=== PATIENT | female | born 1990 | race Caucasian/White ===

== ENCOUNTER 2017-06-04 02:25 | Emergency (ER) | payer MEDICAID ==
[2017-06-04 03:14] LABS: Basophils % (Auto) 0.7 % (0.0-1.8); Eosinophils % (Auto) 1.5 % (0.0-4.3); Hematocrit 35.1 % (30.3-42.9); Hemoglobin 11.6 gm/dl (10.1-14.3); Mean Corpuscular HGB Conc 33 % (30-34); Mean Corpuscular Volume 75 fl (79-97); Platelet Count 231 K/mm3 (140-440); Red Blood Count 4.67 M/mm3 (3.65-5.03); Red Cell Distribution Width 14.6 % (13.2-15.2)
[2017-06-04 03:26] LABS: Anion Gap 16 mmol/L; BUN/Creatinine Ratio 17; Blood Urea Nitrogen 12 mg/dL (7-17); Calcium 9.3 mg/dL (8.4-10.2); Carbon Dioxide 27 mmol/L (22-30); Chloride 102.2 mmol/L (98-107); Glucose 89 mg/dL (65-100); Mean Corpuscular Hemoglobin 25 pg (28-32); Potassium 4.2 mmol/L (3.6-5.0); Sodium 141 mmol/L (137-145)
--- NOTE | 2017-06-04 04:13 | Emergency Department Report ---
ED Chest Pain HPI - General Chief Complaint: Chest Pain Stated Complaint: CP Time Seen by Provider: 06/04/17 03:59 Source: patient Mode of arrival: Ambulatory Limitations: No Limitations - History of Present Illness Initial Comments: 27-year-old female presents to the emergency department from home with a complaint of a three-day history of some intermittent sharp chest pains with some radiation towards the back. When this occurs she sometimes feels like she has shortness of breath. She denies any nausea, vomiting, fever or diaphoresis. She has a past medical history of preeclampsia and some hypertension during her . She also has a history of hypothyroidism for which she takes Synthroid. She is not currently have a primary care physician. She has not taken anything for her symptoms prior to presentation but she did take a baby aspirin this morning. - Related Data Home Medications Medication Instructions Recorded Confirmed Last Taken Levothyroxine [Synthroid] 50 mcg PO QAM 05/19/15 06/04/17 06/03/17 Allergies Allergy/AdvReac Type Severity Reaction Status Date / Time No Known Allergies Allergy Unverified 05/19/15 15:23 Heart Score - HEART Score History: Slightly suspicious EKG: Normal Age: < 45 Risk factors: 1-2 risk factors Troponin: < normal limit HEART Score: 1 - Critical Actions Critical Actions: 0-3 pts:0.9-1.7%risk of adverse cardiac event.Candidate for discharge ED Review of Systems ROS: Stated complaint: CP Other details as noted in HPI Comment: All other systems reviewed and negative Constitutional: denies: chills, fever Eyes: denies: eye pain, eye discharge, vision change ENT: denies: ear pain, throat pain Respiratory: shortness of breath. denies: cough Cardiovascular: chest pain. denies: palpitations Gastrointestinal: denies: abdominal pain, nausea, diarrhea Genitourinary: denies: urgency, dysuria, discharge Musculoskeletal: back pain. denies: arthralgia Skin: denies: rash, lesions Neurological: denies: headache, weakness, paresthesias ED Past Medical Hx - Past Medical History Additional medical history: HYPOTHYROIDISM, PRE ECLAMPSIA - Surgical History Additional Surgical History: D&C, C-SECTIONS X2. UTERINE POLYP REMOVAL. UTERINE CYST REMOVAL - Social History Smoking Status: Never Smoker Substance Use Type: None - Medications Home Medications: Home Medications Medication Instructions Recorded Confirmed Last Taken Type Levothyroxine [Synthroid] 50 mcg PO QAM 05/19/15 06/04/17 06/03/17 History ED Physical Exam - General Limitations: No Limitations - Other Other exam information: GENERAL: The patient is well-developed well-nourished. HENT: Normocephalic. Atraumatic. Patient has moist mucous membranes. EYES: Extraocular motions are intact. Pupils equal reactive to light bilaterally. NECK: Supple. Trachea is midline. CHEST/LUNGS: Clear to auscultation. There is no respiratory distress noted. HEART/CARDIOVASCULAR: Regular. There is no tachycardia. There is no murmur. ABDOMEN: Abdomen is soft, nontender. Patient has normal bowel sounds. There is no abdominal distention. SKIN: Skin is warm and dry. NEURO: The patient is awake, alert, and oriented. The patient is cooperative. The patient has no focal neurologic deficits. The patient has normal speech. MUSCULOSKELETAL: There is no tenderness or deformity. There is no limitation range of motion. There is no evidence of acute injury. ED Course Vital Signs 06/04/17 06/04/17 06/04/17 02:51 03:56 04:00 Temperature 98.6 F Pulse Rate 79 81 Respiratory 18 16 Rate Blood Pressure 148/89 146/87 156/97 O2 Sat by Pulse 100 100 Oximetry 06/04/17 06/04/17 06/04/17 04:08 04:15 04:31 Temperature Pulse Rate 70 79 Respiratory 18 21 19 Rate Blood Pressure 156/97 131/89 O2 Sat by Pulse 99 100 100 Oximetry 06/04/17 06/04/17 06/04/17 04:45 05:01 05:15 Temperature Pulse Rate 77 78 71 Respiratory 18 17 21 Rate Blood Pressure 131/89 165/107 165/107 O2 Sat by Pulse 100 100 100 Oximetry 06/04/17 06/04/17 06/04/17 05:30 05:45 06:00 Temperature Pulse Rate 70 78 78 Respiratory 18 16 19 Rate Blood Pressure 163/94 163/94 148/93 O2 Sat by Pulse 100 100 100 Oximetry 06/04/17 06:15 Temperature Pulse Rate 85 Respiratory 11 L Rate Blood Pressure 148/93 O2 Sat by Pulse 100 Oximetry JOSE score - Jose Score Age > 65: (0) No Aspirin use within the Past 7 Days: (0) No 3 or more CAD Risk Factors: (0) No 2 or more Angina events in past 24 hrs: (0) No Known CAD with more than 50% Stenosis: (0) No Elevated Cardiac Markers: (0) No ST Deviation Greater than 0.5mm: (0) No JOSE Score: 0 ED Medical Decision Making - Lab Data Result diagrams: 06/04/17 02:58 06/04/17 02:58 - EKG Data -: EKG Interpreted by Me EKG shows normal: sinus rhythm, axis, intervals, QRS complexes, ST-T waves Rate: normal - EKG Data When compared to previous EKG there are: previous EKG unavailable Interpretation: normal EKG - Radiology Data Radiology results: image reviewed interpreted by me: Chest x-ray does not show any acute process. There are no pleural effusions, obvious pneumonia and there is no pneumothorax. - Medical Decision Making 27-year-old presents with some chest pain and occasional shortness of breath. Negative troponins 2 and a negative d-dimer. EKG does not show any signs of ST elevation CO, ischemia or dysrhythmia. She has a history of hypothyroidism and may not be completely controlled with her Synthroid. Vital signs otherwise stable including being afebrile. Patient is feeling improved. Reevaluated multiple times for multiple hours and she has been stable throughout her ED course. Discharge home with referrals for primary care and cardiology. She will return to the ER with any worsening of her symptoms or any acute distress. - Differential Diagnosis CO, PE, costochondritis, GERD Critical Care Time: No Critical care attestation.: If time is entered above; I have spent that time in minutes in the direct care of this critically ill patient, excluding procedure time. ED Disposition Clinical Impression: Chest pain Qualifiers: Chest pain type: unspecified Qualified Code(s): R07.9 - Chest pain, unspecified Hypertension Qualifiers: Hypertension type: essential hypertension Qualified Code(s): I10 - Essential ( primary) hypertension Disposition: TO HOME OR SELFCARE Is pt being admited?: No Condition: Stable Instructions: Chest Pain (ED), Hypertension (ED) Additional Instructions: Please follow up with a primary care physician in the next few days. I have given him a referral for a local race and sports book writer, Dr. Roland, to follow up regarding your intermittent chest pain. Return to the emergency Department with any worsening of your symptoms or any acute distress. Try and stay away from foods that are high in salt and caffeinated products to help with your blood pressure. Keep a blood pressure log. Referrals: IRENE ECHEVARRIA MD [Staff Physician] - 3-5 Days YEISON ROLAND MD [Staff Physician] - 3-5 Days [facility] [Outside] - 3-5 Days Time of Disposition: 05:57
--- NOTE | 2017-06-04 04:43 | XRay Report ---
FINAL REPORT EXAM: XR CXR CLINICAL INDICATIONS: CP FINDINGS: Frontal and lateral views the chest were acquired. The heart is normal in size. The lungs appear clear. The pleura and mediastinum are within normal limits. IMPRESSION: NO ACTIVE DISEASE IN THE CHEST
[2017-06-04 06:25] VITALS: BP 148/93
== END 2017-06-04 06:32 | disposition home or self-care (01) ==
LOC: ED 02:25
DX: I10 Essential (primary) hypertension (principal); R07.9 Chest pain, unspecified; E03.9 Hypothyroidism, unspecified
CPT/HCPCS: 36415; 71020; 80048; 84443; 84484; 84703; 85025; 85379; 93005; 93010

== ENCOUNTER 2017-10-12 23:38 | Emergency (ER) | payer MEDICAID ==
[2017-10-12 23:59] VITALS: BP 122/80
[2017-10-13 00:41] LABS: Bilirubin,Urine NEG (Negative); Blood,Urine LG (Negative); Color,Urine Yellow (Yellow); Protein,Urine <15 mg/dL mg/dL (Negative); Urobilinogen,Urine < 2.0 mg/dL (<2.0)
[2017-10-13 00:49] LABS: HCG Qualitative,Urine Negative (Negative)
[2017-10-13] MEDS ORDERED: MOTRIN ONE (00:58)
[2017-10-13] MEDS ORDERED: MOTRIN PO ONE (01:02)
--- NOTE | 2017-10-13 02:37 | Emergency Department Report ---
HPI - General Chief Complaint: Back Pain/Injury Time Seen by Provider: 10/13/17 02:32 - HPI HPI: 27-year-old [place] female comes in complaining of back pain 1 week. Patient reports that the back pain is mid back worse in the morning when she tries to void. She denies any dysuria. She denies any nausea no vomiting no fever no chills and no trauma. Does have a past medical history of hypothyroidism. She currently takes levothyroxine. She reports that she took Tylenol but did not help. She reports that she was given Motrin while here and reports to get help. Patient reports that she has had T kids in 2016 at 2017 with preeclampsia. ED Past Medical Hx - Past Medical History Previous Medical History?: Yes Additional medical history: HYPOTHYROIDISM, PRE ECLAMPSIA - Surgical History Past Surgical History?: Yes Additional Surgical History: D&C, C-SECTIONS X2. UTERINE POLYP REMOVAL. UTERINE CYST REMOVAL - Social History Smoking Status: Never Smoker Substance Use Type: None - Medications Home Medications: Home Medications Medication Instructions Recorded Confirmed Last Taken Type Levothyroxine [Synthroid] 50 mcg PO QAM 05/19/15 06/04/17 06/03/17 History Nitrofurantoin Monohyd/M-Cryst 100 mg PO BID #14 capsule 10/13/17 Unknown Rx [Macrobid 100 mg Capsule] ED Review of Systems ROS: Stated complaint: BACK PAIN Other details as noted in HPI Physical Exam - Physical Exam Vital Signs: Vital Signs 10/12/17 23:55 Temperature 97.8 F Pulse Rate 76 Respiratory 17 Rate Blood Pressure 122/80 O2 Sat by Pulse 100 Oximetry Physical Exam: GENERAL: Alert and oriented x3, no apparent distress, Normal Gait, atraumatic. HEAD: Head is normocephalic and a-traumatic. EYES: Extra ocular muscles are intact. Pupils are equal, round, and reactive to light and accommodation. MOUTH:Mouth is well hydrated and without lesions. Tonsils nonerythematous or swollen, Uvula midline, Tongue not elevated. Mucous membranes are moist. Posterior pharynx clear, no exudate or lesions. Patent airways. NECK: Supple. Non edematous, No carotid bruits. No lymphadenopathy or thyromegaly. LUNGS: Symetrical with respiration, No wheezing, no rales or crackles, CTAB. HEART: S1, S2 present, regular rate and rhythm without murmur, no rubs, no gallops. ABDOMEN: No organomegaly was noted,Positive bowel sounds, soft, and non- distended. . Nontender to palpation on all Quadrants, NO CVA tenderness. EXTREMITIES/MUSCULOSKELETAL: No cyanosis, clubbing, rash, lesions or edema. Full ROM bilaterally. UE/LE Pulses 2+ bilaterally. LE and UE 5+ strength bilaterally Back: Normal inspection mild CVA tenderness on the right. No paraspinal tenderness or vertebral tenderness. Full range of motion. NEUROLOGIC: No focal Deficit, Cranial nerves II through XII are grossly intact. No loss of sensation, No facial droop, PSYCHIATRIC: Mood is congruent with affect, SKIN: Warm and dry, No lesions, No ulceration or induration present ED Course Vital Signs 10/12/17 23:55 Temperature 97.8 F Pulse Rate 76 Respiratory 17 Rate Blood Pressure 122/80 O2 Sat by Pulse 100 Oximetry ED Medical Decision Making - Medical Decision Making Patient's been evaluated with this provider fast track. Urinalysis was completed which shows the patient has a trace of leukocytes. Negative . Discussed the patient will treat her for urinary tract infection and discussed with her to follow-up with outside Medical Center if symptoms persist or gets worse. Patient verbalized understanding. Critical care attestation.: If time is entered above; I have spent that time in minutes in the direct care of this critically ill patient, excluding procedure time. ED Disposition Clinical Impression: UTI (urinary tract infection) Qualifiers: Urinary tract infection type: acute cystitis Hematuria presence: without hematuria Qualified Code(s): N30.00 - Acute cystitis without hematuria Disposition: TO HOME OR SELFCARE Is pt being admited?: No Does the pt Need Aspirin: No Condition: Stable Instructions: Urinary Tract Infection in Women (ED) Additional Instructions: Please complete antibiotics as prescribed. You can take Motrin over-the- counter for pain management. Please drink plenty of fluids such as water. Please do not drink sodas increase water intake. Prescriptions: Nitrofurantoin Monohyd/M-Cryst [Macrobid 100 mg Capsule] 100 mg PO BID #14 capsule Referrals: PRIMARY CARE, [Primary Care Provider] - 3-5 Days [facility] [Provider Group] - 3-5 Days
== END 2017-10-13 02:40 | disposition home or self-care (01) ==
LOC: ED 23:38
DX: N30.00 Acute cystitis without hematuria (principal); E03.9 Hypothyroidism, unspecified
CPT/HCPCS: 81001; 81025; 87086; 99283

== ENCOUNTER 2018-03-15 16:28 | Emergency (ER) | payer MEDICAID, OTHER ==
[2018-03-15 17:54] VITALS: BP 151/96
--- NOTE | 2018-03-15 21:03 | Emergency Department Report ---
Minor Respiratory - HPI Chief Complaint: Upper Respiratory Infection Stated Complaint: CONGESTION/THROAT/FEVER/SOAR Duration: 1 Day Pain Location: Nose Severity: moderate Minor Respiratory: Yes Rhinorrhea, Yes Able to Tolerate Fluids, Yes Cough, Yes Sick Contacts (children), Yes Fever, No Sore Throat, No Ear Pain, No Hemoptysis , No Chest Pain, No Shortness of Breath Other History: This is a 28-year-old female presents with fever, congestion, and cough that started yesterday morning. Patient states she took her children to a birthday alliance party on Tuesday. Both children started coughing and fever 3 days ago. She is currently taking cold and flu medication with no improvement of symptoms. She denies recent travel, diarrhea, nausea or vomiting , chest pain, and shortness of breath. ED Review of Systems ROS: Stated complaint: CONGESTION/THROAT/FEVER/SOAR Other details as noted in HPI Constitutional: chills, fever ENT: congestion. denies: ear pain, throat pain Respiratory: cough. denies: shortness of breath, wheezing Cardiovascular: denies: chest pain, palpitations Gastrointestinal: denies: abdominal pain, nausea, diarrhea Musculoskeletal: denies: back pain, joint swelling, arthralgia, myalgia Skin: denies: rash, lesions Neurological: denies: headache, weakness, paresthesias Psychiatric: denies: anxiety, depression ED Past Medical Hx - Past Medical History Previous Medical History?: Yes Additional medical history: HYPOTHYROIDISM, PRE ECLAMPSIA - Surgical History Past Surgical History?: Yes Additional Surgical History: D&C, C-SECTIONS X2. UTERINE POLYP REMOVAL. UTERINE CYST REMOVAL - Social History Smoking Status: Never Smoker Substance Use Type: None - Medications Home Medications: Home Medications Medication Instructions Recorded Confirmed Last Taken Type Levothyroxine [Synthroid] 50 mcg PO QAM 05/19/15 06/04/17 06/03/17 History Nitrofurantoin Monohyd/M-Cryst 100 mg PO BID #14 capsule 10/13/17 Unknown Rx [Macrobid 100 mg Capsule] Amoxicillin/Potassium Clav 1 each PO BID #10 tablet 03/15/18 Unknown Rx [Augmentin 875-125 Tablet] Benzonatate 200 mg PO TID PRN #20 capsule 03/15/18 Unknown Rx Fluticasone [Flonase] 1 spray NS QDAY #1 bottle 09/26/18 Unknown Rx Minor Respiratory Exam - Exam General: Vital signs noted. No distress. Alert and acting appropriately. HEENT: Yes Pharyngeal Erythema (posterior pharynx), Yes Moist Mucous Membranes, Yes Rhinorrhea (turbinate is mildly congested with mucoid discharge), Yes Frontal Tenderness, No Pharyngeal Exudates, No Conjuctival Injection, No Maxillary Tenderness Ear: Neither TM Bulge, Neither TM Erythema, Neither EAC Pain, Neither EAC Discharge Neck: Yes Supple, No Adenopathy Lungs: Yes Good Air Exchange, Yes Cough, No Wheezes, No Ronchi, No Stridor, No Labored Respirations, No Retractions, No Use of Accessory Muscles, No Other Abnormal Lung Sounds Heart: Yes Regular, No Murmur Abdomen: Yes Normal Bowel Sounds, No Tenderness, No Peritoneal Signs Skin: No Rash, No Edema Neurologic: Alert and oriented, no deficits. Musculoskeletal: Unremarkable. ED Course Vital Signs 03/15/18 17:52 Temperature 99.4 F Pulse Rate 114 H Respiratory 18 Rate Blood Pressure 151/96 O2 Sat by Pulse 97 Oximetry Vital Signs 03/15/18 03/15/18 17:52 21:10 Temperature 99.4 F Pulse Rate 114 H 94 H Respiratory 18 17 Rate Blood Pressure 151/96 O2 Sat by Pulse 97 99 Oximetry ED Medical Decision Making - Medical Decision Making Patient is stable and was examined by me. Vitals stable and patient is in no acute distress. Physical assessment susceptible of acute frontal sinusitis. Start Augmentin, Flonase, benzonatate. Continue Tylenol or ibuprofen for fever. Discussed plan with patient and she agreed with plan. Discharged home in stable condition. Follow up with PCP in 2-3 days. Critical care attestation.: If time is entered above; I have spent that time in minutes in the direct care of this critically ill patient, excluding procedure time. ED Disposition Clinical Impression: Sinusitis Qualifiers: Sinusitis location: frontal Chronicity: acute Recurrence: non-recurrent Qualified Code(s): J01.10 - Acute frontal sinusitis, unspecified Disposition: - TO HOME OR SELFCARE Is pt being admited?: No Does the pt Need Aspirin: No Condition: Stable Instructions: Sinusitis (ED) Additional Instructions: Increase fluid intake and rest. Wash hands frequently. Continue taking Tylenol or ibuprofen to control fever. F/U with Primary Care Provider. Return to ER if fever, SOB, or difficulty breathing after 48 hours of supportive care. Prescriptions: Amoxicillin/Potassium Clav [Augmentin 875-125 Tablet] 1 each PO BID #10 tablet Benzonatate 200 mg PO TID PRN #20 capsule PRN Reason: Cough Fluticasone [Flonase] 1 spray NS QDAY #1 bottle Referrals: [facility] [Outside] - 3-5 Days [facility] [Outside] - 3-5 Days [facility] [Outside] - 3-5 Days Time of Disposition: 20:58 Print Language: TURKMEN
== END 2018-03-15 21:10 | disposition home or self-care (01) ==
LOC: ED 16:28
DX: J32.9 Chronic sinusitis, unspecified (principal); E03.9 Hypothyroidism, unspecified
CPT/HCPCS: 99282

== ENCOUNTER 2018-06-20 19:17 | Emergency (ER) | payer OTHER ==
[2018-06-20 19:24] VITALS: BP 126/71
--- NOTE | 2018-06-20 20:12 | Emergency Department Report ---
ED ENT HPI - General Chief complaint: Skin/Abscess/Foreign Body Stated complaint: FISHBONE Time Seen by Provider: 06/20/18 19:48 Source: patient Mode of arrival: Ambulatory Limitations: No Limitations - History of Present Illness Initial comments: This is a 28-year-old female who presents with sore throat. Patient states she swallowed a fishbone last night around 2130 and experiencing discomfort every since. She is able to tolerate liquids and food but there is discomfort with swallowing. It feel like something is stuck there. She reports 4 episodes of vomiting. She called her insurance and he told her to follow-up in the emergency room. She denies drooling, shortness of breath, hoarseness, or stridor. MD complaint: foreign body -: Last night Time: 21:30 Location: throat Severity: moderate Severity scale (0 -10): 5 Quality: aching Consistency: intermittent Improves with: none Worsens with: swallowing, eating Associated Symptoms: pain with swallowing, sore throat. denies: fever, cough, gum swelling, toothache, tinnitus, hearing loss, discharge from ear, rhinorrhea - Related Data Home Medications Medication Instructions Recorded Confirmed Last Taken Levothyroxine [Synthroid] 50 mcg PO QAM 05/19/15 06/04/17 06/03/17 Previous Rx's Medication Instructions Recorded Last Taken Type Nitrofurantoin Monohyd/M-Cryst 100 mg PO BID #14 capsule 10/13/17 Unknown Rx [Macrobid 100 mg Capsule] Amoxicillin/Potassium Clav 1 each PO BID #10 tablet 03/15/18 Unknown Rx [Augmentin 875-125 Tablet] Fluticasone [Flonase] 1 spray NS QDAY #1 bottle 03/15/18 Unknown Rx RX: Benzonatate 200 mg PO TID PRN #20 capsule 03/15/18 Unknown Rx Allergies Allergy/AdvReac Type Severity Reaction Status Date / Time No Known Allergies Allergy Unverified 05/19/15 15:23 ED Dental HPI - General Chief complaint: Skin/Abscess/Foreign Body Stated complaint: FISHBONE Time Seen by Provider: 06/20/18 19:48 Source: patient Mode of arrival: Ambulatory Limitations: No Limitations - Related Data Home Medications Medication Instructions Recorded Confirmed Last Taken Levothyroxine [Synthroid] 50 mcg PO QAM 05/19/15 06/04/17 06/03/17 Previous Rx's Medication Instructions Recorded Last Taken Type Nitrofurantoin Monohyd/M-Cryst 100 mg PO BID #14 capsule 10/13/17 Unknown Rx [Macrobid 100 mg Capsule] Amoxicillin/Potassium Clav 1 each PO BID #10 tablet 03/15/18 Unknown Rx [Augmentin 875-125 Tablet] Fluticasone [Flonase] 1 spray NS QDAY #1 bottle 03/15/18 Unknown Rx RX: Benzonatate 200 mg PO TID PRN #20 capsule 03/15/18 Unknown Rx Allergies Allergy/AdvReac Type Severity Reaction Status Date / Time No Known Allergies Allergy Unverified 05/19/15 15:23 ED Review of Systems ROS: Stated complaint: FISHBONE Other details as noted in HPI Constitutional: denies: chills, fever ENT: throat pain. denies: ear pain, dental pain, hearing loss, epistaxis, congestion Respiratory: denies: cough, shortness of breath, wheezing Cardiovascular: denies: chest pain, palpitations Gastrointestinal: denies: abdominal pain, nausea, diarrhea Skin: denies: rash, lesions Neurological: denies: headache, weakness, paresthesias Psychiatric: denies: anxiety, depression ED Past Medical Hx - Past Medical History Additional medical history: HYPOTHYROIDISM, PRE ECLAMPSIA - Surgical History Additional Surgical History: D&C, C-SECTIONS X2, Tubal Ligation. UTERINE POLYP REMOVAL. UTERINE CYST REMOVAL - Social History Smoking Status: Never Smoker Substance Use Type: None - Medications Home Medications: Home Medications Medication Instructions Recorded Confirmed Last Taken Type Levothyroxine [Synthroid] 50 mcg PO QAM 05/19/15 06/04/17 06/03/17 History Nitrofurantoin Monohyd/M-Cryst 100 mg PO BID #14 capsule 10/13/17 Unknown Rx [Macrobid 100 mg Capsule] Amoxicillin/Potassium Clav 1 each PO BID #10 tablet 03/15/18 Unknown Rx [Augmentin 875-125 Tablet] Fluticasone [Flonase] 1 spray NS QDAY #1 bottle 03/15/18 Unknown Rx RX: Benzonatate 200 mg PO TID PRN #20 capsule 03/15/18 Unknown Rx ED Physical Exam - General Limitations: No Limitations General appearance: alert, in no apparent distress, obese - ENT ENT exam: Present: normal exam, mucous membranes moist, TM's normal bilaterally, normal external ear exam. Absent: normal orophraynx (erythematous posterior pharynx, uvula midline) - Neck Neck exam: Present: normal inspection, full ROM. Absent: tenderness, meningismus, lymphadenopathy, thyromegaly - Respiratory Respiratory exam: Present: normal lung sounds bilaterally. Absent: respiratory distress - Cardiovascular Cardiovascular Exam: Present: regular rate, normal rhythm. Absent: systolic murmur, diastolic murmur, rubs, gallop - GI/Abdominal GI/Abdominal exam: Present: soft, normal bowel sounds - Neurological Exam Neurological exam: Present: alert, oriented X3 - Psychiatric Psychiatric exam: Present: normal affect, normal mood - Skin Skin exam: Present: warm, dry, intact, normal color. Absent: rash ED Course Vital Signs 06/20/18 06/20/18 19:21 19:33 Temperature 97.9 F 97.9 F Pulse Rate 89 89 Respiratory 18 18 Rate Blood Pressure 126/71 126/71 O2 Sat by Pulse 99 99 Oximetry ED Medical Decision Making - Radiology Data Radiology results: report reviewed FINAL REPORT PROCEDURE: XR NECK SOFT TISSUE TECHNIQUE: Soft tissue neck radiographs, 2 views, including AP and lateral. CPT 08773 HISTORY: Foreign Body in throat/FISHBONE COMPARISON: No prior studies are available for comparison. FINDINGS: Bones: Unremarkable Soft tissues: Epiglottis and hypopharyngeal soft tissues normal. Foreign bodies: None. IMPRESSION: Normal Examination - Medical Decision Making Patient was examined by me. Vitals are normal and patient is in no acute distress. On focal exam no angiodema, hoarseness, or stridor, uvula midline. Obtained x-ray of neck of neck soft tissue. Given lidocaine viscous 15 mL po once while in ER. Reviewed report and no acute findings. Patient informed of results. Patient discharged home in stable condition. Follow up with PCP in 2-3 days. Critical care attestation.: If time is entered above; I have spent that time in minutes in the direct care of this critically ill patient, excluding procedure time. ED Disposition Clinical Impression: Sensation of foreign body in throat, Odynophagia Disposition: TO HOME OR SELFCARE Is pt being admited?: No Does the pt Need Aspirin: No Condition: Stable Additional Instructions: [facility] Regrese a la imani de emergencias si tiene dificultad para respirar, babea o tiene dificultad para tragar. Follow up with [facility]. Return to the emergency room if shortness of breath, drooling, or difficulty swallowing. Referrals: [facility] [Outside] - 3-5 Days [facility] [Outside] - 3-5 Days [facility] [Outside] - 3-5 Days Time of Disposition: 20:30 Print Language: TAJIK
--- NOTE | 2018-06-20 20:15 | XRay Report ---
FINAL REPORT PROCEDURE: XR NECK SOFT TISSUE TECHNIQUE: Soft tissue neck radiographs, 2 views, including AP and lateral. CPT 16756 HISTORY: Foreign Body in throat/FISHBONE COMPARISON: No prior studies are available for comparison. FINDINGS: Bones: Unremarkable Soft tissues: Epiglottis and hypopharyngeal soft tissues normal. Foreign bodies: None. IMPRESSION: Normal Examination.
[2018-06-20] MEDS ORDERED: LIDOCAINE VISCOUS 2% PO ONE (20:27)
== END 2018-06-20 20:48 | disposition home or self-care (01) ==
LOC: ED 19:17
DX: R13.10 Dysphagia, unspecified (principal); J39.2 Other diseases of pharynx; E03.9 Hypothyroidism, unspecified
CPT/HCPCS: 70360